=== PATIENT | female | born 1990 | race Caucasian/White ===

== ENCOUNTER → 2017-01-07 | Outpatient (CLI) | payer BC ==
[~2017-01-07] VITALS: Ht 167.6 cm; Wt 71.0 kg
[~2017-01-07] MED LIST: ASPIR 8181 M1 PO; PRENATAL TABLE1 EAC3 PO; ZYRTEC10 M2 PO
[2017-01-07 16:09] VITALS: BP 128/76
== END | disposition home or self-care (01) ==
LOC: IVINF 15:56
DX: Z29.13 Encounter for prophylactic Rho(D) immune globulin (principal); Z3A.28 28 weeks gestation of pregnancy
CPT/HCPCS: J2790

== ENCOUNTER 2017-03-13 16:48 | Outpatient (CLI) | payer BC ==
[~2017-03-13] VITALS: Ht 167.6 cm; Wt 83.6 kg
[2017-03-13 17:15] VITALS: BP 134/93
[2017-03-13 18:01] LABS: EOSINOPHIL (%) 1.9 % (0-5); EOSINOPHIL COUNT 0.2 K/uL (0-0.3); HEMATOCRIT 36.9 % (36.0-46.0); IMMATURE GRANULOCYTE (%) 0.6 % (0.0-0.7); IMMATURE GRANULOCYTE COUNT 0.1 K/uL; INSTRUMENT ABS NEUTROPHIL CT 7.1 K/uL; LYMPHOCYTE COUNT 1.9 K/uL (1.0-2.8); MCH 29.7 PG (29.0-34.0); MCHC 33.6 G/DL (30.0-36.0); MCV 88.3 FL (83-99); MEAN PLAT.VOLUME 11.8 uM^3 (9.5-12.4); MONOCYTE (%) 6.5 % (3-12); MONOCYTE COUNT 0.6 K/uL (0-0.8); NEUTROPHIL (%) 71.4 % (45-76); NEUTROPHIL COUNT 7.1 K/uL (1.8-6.4); PLATELET COUNT 230 K/uL (156-360); RBC DIS.WIDTH-CV 12.2 % (11.8-14.6); RBC DIS.WIDTH-SD 39.6 % (39-53); RED BLOOD COUNT 4.18 M/uL (3.80-5.20); WHITE BLOOD COUNT 9.9 K/uL (4.1-10.2)
[2017-03-13 18:05] VITALS: BP 136/93
[2017-03-13 18:11] LABS: CHLORIDE 106 mEq/L (99-109); POTASSIUM 3.9 mEq/L (3.7-5.4); SODIUM 136 mEq/L (136-147)
[2017-03-13 18:13] LABS: GLUCOSE 73 mg/dL (70-99)
[2017-03-13 18:14] LABS: ANION GAP 12 MEQ/L (2-14)
[2017-03-13 18:15] LABS: TOTAL BILIRUBIN 0.5 mg/dL (0.0-1.0)
[2017-03-13 18:17] LABS: ALKALINE PHOSPHATASE 110 IU/L (3-129); GFR ESTIMATE (CALCULATED) > 59 mL/min/
[2017-03-13 18:18] LABS: UREA NITROGEN (BUN) 12 mg/dL (9-23)
[2017-03-13 18:56] VITALS: BP 139/102
[2017-03-13 19:46] VITALS: BP 142/84
[2017-03-13 20:03] VITALS: BP 132/84
== END 2017-03-13 20:34 | disposition home or self-care (01) ==
LOC: LDRP-OP → 2WEST 16:50 → LDRP-OP 04-28 13:59
PROVIDERS: Nurse Practitioner
DX: O14.93 Unspecified pre-eclampsia, third trimester (principal); Z3A.37 37 weeks gestation of pregnancy
CPT/HCPCS: 59025; 80053; 85025; G0378

== ENCOUNTER 2017-03-17 17:03 | Outpatient (CLI) | payer BC ==
[~2017-03-17] VITALS: Ht 167.6 cm; Wt 84.0 kg
[2017-03-17] VITALS (8 sets, daily range): BP systolic 130–137; BP diastolic 82–93
[2017-03-17 18:14] LABS: EOSINOPHIL (%) 1.9 % (0-5); EOSINOPHIL COUNT 0.2 K/uL (0-0.3); HEMATOCRIT 35.6 % (36.0-46.0); IMMATURE GRANULOCYTE (%) 0.3 % (0.0-0.7); INSTRUMENT ABS NEUTROPHIL CT 6.7 K/uL; LYMPHOCYTE COUNT 1.6 K/uL (1.0-2.8); MCH 29.6 PG (29.0-34.0); MCHC 33.7 G/DL (30.0-36.0); MCV 87.9 FL (83-99); MEAN PLAT.VOLUME 11.6 uM^3 (9.5-12.4); MONOCYTE (%) 6.5 % (3-12); MONOCYTE COUNT 0.6 K/uL (0-0.8); NEUTROPHIL (%) 73.4 % (45-76); NEUTROPHIL COUNT 6.7 K/uL (1.8-6.4); PLATELET COUNT 240 K/uL (156-360); RBC DIS.WIDTH-CV 12.2 % (11.8-14.6); RBC DIS.WIDTH-SD 39.2 % (39-53); RED BLOOD COUNT 4.05 M/uL (3.80-5.20); WHITE BLOOD COUNT 9.1 K/uL (4.1-10.2)
[2017-03-17 18:41] LABS: ANION GAP 9 MEQ/L (2-14); CHLORIDE 106 MEQ/L (99-109); SAMPLE HEMOLYSIS CHECK 0; SAMPLE ICTERIC CHECK 0; SAMPLE LIPEMIA CHECK 0; SODIUM 136 MEQ/L (136-147); TOTAL BILIRUBIN 0.4 MG/DL (0.0-1.0)
[2017-03-17 18:47] LABS: ALKALINE PHOSPHATASE 101 IU/L (3-129); GFR ESTIMATE (CALCULATED) > 59 mL/min/; GLUCOSE 78 mg/dL (70-99); UREA NITROGEN (BUN) 8 mg/dL (9-23)
[2017-03-17 19:25] LABS: UR CREATININE CONCENTRATION 70.2 MG/DL
== END 2017-03-17 19:50 | disposition home or self-care (01) ==
LOC: LDRP-OP 17:03 → 2WEST 17:05 → LDRP-OP 04-28 21:38
PROVIDERS: Nurse Practitioner
DX: O13.3 Gestational [pregnancy-induced] hypertension without significant proteinuria, third trimester (principal); Z3A.37 37 weeks gestation of pregnancy
CPT/HCPCS: 59025; 80053; 82570; 84156; 85025; G0378

== ENCOUNTER 2017-03-24 06:16 | Inpatient (IN) | payer BC ==
[~2017-03-24] VITALS: Ht 167.6 cm; Wt 83.6 kg
[2017-03-24] VITALS (21 sets, daily range): BP systolic 112–159; BP diastolic 67–100
[2017-03-24 07:56] LABS: EOSINOPHIL (%) 2.3 % (0-5); EOSINOPHIL COUNT 0.2 K/uL (0-0.3); HEMATOCRIT 35.5 % (36.0-46.0); IMMATURE GRANULOCYTE (%) 0.3 % (0.0-0.7); INSTRUMENT ABS NEUTROPHIL CT 6.7 K/uL; LYMPHOCYTE COUNT 1.5 K/uL (1.0-2.8); MCH 29.9 PG (29.0-34.0); MCHC 33.8 G/DL (30.0-36.0); MCV 88.5 FL (83-99); MEAN PLAT.VOLUME 11.6 uM^3 (9.5-12.4); MONOCYTE (%) 6.6 % (3-12); MONOCYTE COUNT 0.6 K/uL (0-0.8); NEUTROPHIL (%) 74.2 % (45-76); NEUTROPHIL COUNT 6.7 K/uL (1.8-6.4); PLATELET COUNT 199 K/uL (156-360); RBC DIS.WIDTH-CV 12.7 % (11.8-14.6); RBC DIS.WIDTH-SD 41.1 % (39-53); RED BLOOD COUNT 4.01 M/uL (3.80-5.20)
[2017-03-24 08:26] LABS: ALKALINE PHOSPHATASE 95 IU/L (3-129); ANION GAP 12 MEQ/L (2-14); CHLORIDE 106 MEQ/L (99-109); GFR ESTIMATE (CALCULATED) > 59 mL/min/; GLUCOSE 93 mg/dL (70-99); POTASSIUM 3.8 MEQ/L (3.7-5.4); SAMPLE HEMOLYSIS CHECK 0; SAMPLE ICTERIC CHECK 0; SAMPLE LIPEMIA CHECK 0; SODIUM 138 MEQ/L (136-147); TOTAL BILIRUBIN 0.5 MG/DL (0.0-1.0); UREA NITROGEN (BUN) 11 mg/dL (9-23)
[2017-03-25] VITALS (24 sets, daily range): BP systolic 116–147; BP diastolic 64–95
[2017-03-25] MEDS ORDERED: IBUPROFEN800 MG PO (11:07)
[2017-03-26 03:30] VITALS: BP 120/84
[2017-03-26 07:30] VITALS: BP 139/92
[2017-03-26 07:45] LABS: EOSINOPHIL (%) 1.5 % (0-5); EOSINOPHIL COUNT 0.2 K/uL (0-0.3); HEMATOCRIT 26.8 % (36.0-46.0); IMMATURE GRANULOCYTE (%) 0.5 % (0.0-0.7); IMMATURE GRANULOCYTE COUNT 0.1 K/uL; INSTRUMENT ABS NEUTROPHIL CT 8.9 K/uL; LYMPHOCYTE COUNT 2.2 K/uL (1.0-2.8); MCHC 33.6 G/DL (30.0-36.0); MCV 89.3 FL (83-99); MONOCYTE (%) 5.2 % (3-12); MONOCYTE COUNT 0.6 K/uL (0-0.8); NEUTROPHIL (%) 74.3 % (45-76); NEUTROPHIL COUNT 8.9 K/uL (1.8-6.4); PLATELET COUNT 188 K/uL (156-360); RBC DIS.WIDTH-CV 12.9 % (11.8-14.6); RBC DIS.WIDTH-SD 41.8 % (39-53); WHITE BLOOD COUNT 11.9 K/uL (4.1-10.2)
[2017-03-26 07:57] VITALS: BP 142/78
[2017-03-26 15:39] VITALS: BP 128/90
[2017-03-26 19:40] VITALS: BP 133/90
[2017-03-26 23:15] VITALS: BP 118/66
[2017-03-27 02:30] VITALS: BP 126/76
[2017-03-27 08:20] VITALS: BP 138/78
== END 2017-03-27 13:50 | disposition home or self-care (01) | DRG 775 ==
LOC: LDRP-OP 06:16 → 2WEST 06:17 → LDRP-OP 07:55 → 2WEST 03-25 09:54 → LDRP-OP 04-28 22:24
PROVIDERS: Midwife; Obstetrics & Gynecology
PROC: 00HU33Z Insertion of Infusion Device into Spinal Canal, Percutaneous Approach (ICD-10-PCS; principal; 2017-03-24)
PROC: 10907ZC Drainage of Amniotic Fluid, Therapeutic from Products of Conception, Via Natural or Artificial Opening (ICD-10-PCS; principal; 2017-03-24)
PROC: 0KQM0ZZ Repair Perineum Muscle, Open Approach (ICD-10-PCS; principal; 2017-03-24)
PROC: 3E0R3BZ Introduction of Anesthetic Agent into Spinal Canal, Percutaneous Approach (ICD-10-PCS; principal; 2017-03-24)
PROC: 10E0XZZ Delivery of Products of Conception, External Approach (ICD-10-PCS; principal; 2017-03-24)
DX: O13.4 Gestational [pregnancy-induced] hypertension without significant proteinuria, complicating childbirth (principal); O99.52 Diseases of the respiratory system complicating childbirth; J45.909 Unspecified asthma, uncomplicated; Z37.0 Single live birth; Z3A.39 39 weeks gestation of pregnancy
CPT/HCPCS: 80053; 85025; C1755; G0378; J3010; J7120